=== PATIENT | female | born 1975 | race Caucasian/White ===

== ENCOUNTER 2016-10-25 17:36 | Emergency (ER) | payer BC ==
[2016-10-25] MEDS ORDERED: KETOROLAC TROMETHAMINE 60 MG/2 ML VIAL IM ONE ×2 (18:15→18:20)
[2016-10-25] MEDS ORDERED: DIAZEPAM 5 MG/ML SYRG IM ONE (18:15)
[2016-10-25] MEDS ORDERED: DIAZEPAM 5 MG/ML SYRG ONE (18:20)
--- NOTE | 2016-10-25 18:50 | ERNOTE ---
Back Pain ER HPI Date of Service: 10/25/16 Presenting Symptoms: injury/pain to back Time Seen by Provider: 10/25/16 18:03 Source: patient, RN notes reviewed Exam Limitations: no limitations Immunizations: IMMUNIZATION HX Immunizations Up to Date Yes History of Influenza Vaccine No Hx Pneumococcal Vaccination No Allergies/Adverse Reactions: Allergies amoxicillin trihydrate [From Augmentin] Allergy (Intermediate, Verified 17:47) HIVES, RESPIRATORY Cephalosporins Allergy (Intermediate, Verified 10/25/16 17:47) HIVES, RESPIRATORY Iodinated Contrast Media - IV Dye Allergy (Intermediate, Verified 10/25/16 17:47 ) HIVES, RESP PROBLEMS potassium clavulanate [From Augmentin] Allergy (Intermediate, Verified 10/25/16 17:47) HIVES, RESPIRATORY venlafaxine HCl [From Effexor] Adverse Reaction (Intermediate, Verified 17:47) MANIC EPISODE Home Medications: HOME MEDICATIONS Sumatriptan Succinate [Imitrex] 100 mg PO PRN PRN 05/16/14 [Last Taken Unknown] Topiramate [Topamax] 100 mg PO HS 05/16/14 [Last Taken Unknown] Topiramate [Topamax] 50 mg PO QAM 07/12/15 [Last Taken Unknown] Cyclobenzaprine HCl [Flexeril] 10 mg PO TID PRN #30 tab 10/25/16 [Last Taken Unknown] Duloxetine HCl [Cymbalta] 60 mg PO DAILY 10/25/16 [Last Taken Unknown] Gabapentin 100 mg PO TID 10/25/16 [Last Taken Unknown] Narrative: 41 y/o female ambulatory to ED for severe low back pain that began suddenly yesterday. She was sitting at her desk at work and experienced pain in her bilateral lumbar/sacral regions when she stood up. She has a history of chronic back pain. She had a coccyx fracture with surgical repair over a year ago. This has not bothered her for a while. She also has been diagnosed with spondylosis and degenerative disc disease. She states that this pain is different that what she has had in the past. She has taken ibuprofen and Vicodin without relief. Date (Duration): 10/24/16 Timing: Reports: constant Quality/Severity: Reports: severe, aching Location of pain: Reports: lower back, radiating to rt thigh/leg, radiating to lf thigh/leg Recent Injury?: Reports: no Modifying Factors - (Improves): Reports: nothing Modifying Factors - (Worsens): Reports: nothing Associated Symptoms: Denies: fever/chills, sweating, constipation/incontinence, nausea/vomiting, problems urinating, difficulty walking, lightheadedness, numbess/weakness in legs Prior Treament: Denies: recently seen, similar symptoms before Review of Systems - Review of Systems Constitutional: Absent: recent illness, fever, chills EYE: Present: no symptoms reported ENT: Present: no symptoms reported Respiratory: Absent: shortness of breath, cough Cardiology: Absent: chest pain, syncope, edema Gastrointestinal/Abdominal: Absent: nausea, vomiting, abdominal pain Genitourinary: Absent: dysuria, hematuria Musculoskeletal: Present: back pain. Absent: joint pain Skin: Absent: rash, lesions Neurological: Present: tingling. Absent: weakness, numbness Endocrine: Present: no symptoms reported Hematologic/Lymphatic: Present: no symptoms reported Psych: Present: no symptoms reported - Patient's Past Medical History Patient History - Medical: Migraines, Obesity, Other Patient History - Cardiac/Respiratory: Hypertension Patient History - Cancer: Cervical, Surgical Treatment Patient History - Surgical Procedures: Tubal Ligation, T & A, Other Patient History - Other: None LMP (Calendar): 08/02/14 - Family History Father Family History - Medical: Arthritis, Diabetes Type 2 Family History - Cardiac/Respiratory: Hypertension Grandmother-Maternal Family History - Cardiac/Respiratory: Coronary Heart Disease Mother Family History - Medical: Arthritis, Hypothyroidism Family History - Cardiac/Respiratory: CVA/Stroke, Hypertension Sister Family History - Medical: Hypothyroidism, Other - Social History Living Situations: home Abuse History: No History of abuse Psych History: Hx of Depression Smoking Status: Current every day smoker Have you smoked in the past 12 months: Yes Alcohol Use: rarely Drug Use: none - Immunizations Immunizations Up to Date: Yes Hx Pneumococcal Vaccination: No History of Influenza Vaccine: No Physical Exam - Physical Exam General Appearance: Present: wd/wn, alert, moderate distress, obese, other - appropriately dressed/groomed Respiratory: Present: no respiratory distress, normal breath sounds, no accessory muscle use, lungs clear Cardiovascular/Chest: Present: regular rate, rhythm, no murmur, normal peripheral pulses Back Exam: Present: no CVA tenderness, no vertebral tenderness - none focal, diffusely tender throughout lower lumbar region, decreased range of motion. Absent: muscle spasm Extremity Exam: Present: normal inspection, no edema, normal range of motion Neurological Exam: Present: alert, oriented, normal mood/affect, no motor/ sensory deficits Skin Exam: Present: normal color, diaphoresis ED Progress - Vital Signs Patient's Vital Signs:: I have reviewed the patient's vital signs. Vital Signs: Vital Signs 10/25/16 17:41 Temperature 36.7 C Pulse Rate 104 H Respiratory 16 Rate Blood Pressure 148/92 O2 Sat by Pulse 99 Oximetry - Progress/Reassessment Chief Complaint: Back Pain Progress:: Improved Progress Note-Subjective: 10/25/16 18:57 Some improvement in pain after Toradol and Valium, wants to go home, already planned to contact Dr. Ruiz for f/u tomorrow Departure Clinical Impression: Low back pain Qualifiers: Chronicity: acute Back pain laterality: bilateral Sciatica presence: with sciatica Sciatica laterality: bilateral sciatica Qualified Code(s): M54.42 - Lumbago with sciatica, left side; M54.41 - Lumbago with sciatica, right side - Departure Disposition: Home Follow Up Needed Condition: Stable Instructions: Back Pain, Pediatric Additional Instructions: Ibuprofen 600 mg every 6 hours Vicodin if needed Flexeril as needed - will cause drowsiness Contact Dr. Ruiz regarding follow up Referrals: Leeroy Ruiz MD [[facility]] - Prescriptions: Cyclobenzaprine HCl [Flexeril] 10 mg PO TID PRN #30 tab PRN Reason: MUSCLE SPASMS
[2016-10-25 21:20] VITALS: BP 125/83
== END 2016-10-25 18:59 | disposition home or self-care (01) ==
LOC: ER 17:36
DX: M54.42 Lumbago with sciatica, left side (principal); Z85.41 Personal history of malignant neoplasm of cervix uteri; F17.210 Nicotine dependence, cigarettes, uncomplicated; G43.909 Migraine, unspecified, not intractable, without status migrainosus; F32.9 Major depressive disorder, single episode, unspecified